=== PATIENT | male | born 1990 | race African-American/Black ===

== ENCOUNTER 2021-12-27 02:36 | Emergency (ER) | payer OTHER ==
[~2021-12-27] VITALS: Ht 188 cm; Wt 90.7 kg
--- NOTE | 2021-12-27 02:55 | NUR ---
BIBS. R FLANK PAIN, URINARY FREQUENCY AND TINGLING UPON URINATION X WED. VITALS CHECKED. PATIENT IS AAOX4. ABLE TO MAKE NEEDS KNOWN. SEEN BY DR KOCH AT TRIAGE. URINE SPECIMEN COLLECTED.
[2021-12-27 03:33] LABS: BILIRUBIN,URINE NEGATIVE (NEGATIVE); COLOR,URINE YELLOW (YELLOW); LEUKOCYTE ESTERASE ,URINE NEGATIVE (NEGATIVE); NITRITE, URINE NEGATIVE (NEGATIVE); PROTEIN,URINE NEGATIVE (NEGATIVE); UGLUCOSE NEGATIVE (NEGATIVE); UROBILINOGEN,URINE 0.2 EU/dL (0.2)
[2021-12-27 03:36] LABS: BACTERIA,URINE Rare /HPF (None Seen); RBC,URINE 21-50 /HPF (0-2); SQUAMOUS EPITHELIAL CELL,UR Few /HPF (None Seen); WBC,URINE 0-2 /HPF (0-3)
[2021-12-27] MEDS ORDERED: TAMS-12 PO (05:56)
[2021-12-27] MEDS ORDERED: KETO10TA2 PO (05:56)
[2021-12-27 07:28] VITALS: BP 111/71
--- NOTE | 2021-12-27 07:28 | NUR ---
Patient discharged to home in stable condition. Written and verbal after care instructions given. Patient verbalizes understanding of instruction.
== END 2021-12-27 07:28 | disposition home or self-care (01) ==
LOC: ER 03:03
DX: N20.0 Calculus of kidney (principal); Z79.899 Other long term (current) drug therapy
CPT/HCPCS: 81001